=== PATIENT | male | born 1950 | race Caucasian/White ===

== ENCOUNTER 2017-10-20 11:10 | Outpatient (REF) | payer MEDICARE, SELFPAY ==
[2017-10-20 21:27] LABS: ALT 122 U/L (12-78); AST 65 U/L (15-37); Albumin 4.6 g/dL (3.4-5.0); Alkaline Phosphatase 77 U/L (46-116); Anion Gap 8.4 mmol/L (3-11); BUN 17 mg/dL (7-18); Bilirubin, Total 0.5 mg/dL (0.2-1.0); CO2 28.6 mmol/L (21.0-32.0); Calcium 9.7 mg/dL (8.5-10.1); Chloride 101 mmol/L (98-107); Glucose 94 mg/dL (70-100); Potassium 4.6 mmol/L (3.5-5.1); Sodium 138 mmol/L (136-145); Total Protein 8.2 g/dL (6.4-8.2)
[2017-10-20 21:38] LABS: Cholesterol 183 mg/dL (50-200); HDL Cholesterol 63 mg/dL (40-60); LDL CHOLESTEROL 112 mg/dL (<100); Triglyceride 71 mg/dL (30-150)
[2017-10-23 13:58] LABS: GGT 128 U/L (15-85)
== END 2017-10-20 11:30 ==
LOC: NCHCN 11:10
PROVIDERS: PCP Family Medicine; Visit Provider Physician Assistant Medical
DX: E78.00 Pure hypercholesterolemia, unspecified (principal); R79.89 Other specified abnormal findings of blood chemistry
CPT/HCPCS: 80053; 80061; 83721; 82977

== ENCOUNTER 2018-05-29 10:57 | Outpatient (REF) | payer MEDICARE, SELFPAY ==
[2018-05-29 21:44] LABS: ALT 69 U/L (12-78); AST 36 U/L (15-37); Albumin 4.3 g/dL (3.4-5.0); Alkaline Phosphatase 68 U/L (46-116); Bilirubin, Total 0.4 mg/dL (0.2-1.0); GGT 62 U/L (15-85)
[2018-05-29 22:31] LABS: Hemoglobin A1C 5.8 % (4.5-6.2)
== END 2018-05-29 11:17 ==
LOC: NCHCN 10:57
PROVIDERS: PCP Family Medicine; Visit Provider Physician Assistant Medical
DX: E78.00 Pure hypercholesterolemia, unspecified (principal); R79.89 Other specified abnormal findings of blood chemistry
CPT/HCPCS: 80076; 82977; 83036

== ENCOUNTER 2018-08-21 22:47 | Outpatient (REF) | payer MEDICARE, SELFPAY ==
[2018-08-21 21:54] LABS: ALT 59 U/L (12-78); AST 34 U/L (15-37); Albumin 4.7 g/dL (3.4-5.0); Alkaline Phosphatase 70 U/L (46-116); Anion Gap 9.4 mmol/L (3-11); BUN 16 mg/dL (7-18); Bilirubin, Total 0.4 mg/dL (0.2-1.0); CO2 27.6 mmol/L (21.0-32.0); CREATININE 0.75 mg/dL (0.70-1.30); Calcium 10.6 mg/dL (8.5-10.1); Chloride 100 mmol/L (98-107); Glucose 115 mg/dL (70-100); Potassium 5.5 mmol/L (3.5-5.1); Sodium 137 mmol/L (136-145); Total Protein 8.2 g/dL (6.4-8.2)
== END 2018-08-21 23:07 ==
LOC: NCHCN 22:47
PROVIDERS: PCP Family Medicine; Visit Provider Physician Assistant Medical
DX: I10 Essential (primary) hypertension (principal); R79.89 Other specified abnormal findings of blood chemistry
CPT/HCPCS: 80053

== ENCOUNTER 2018-09-24 22:43 | Outpatient (REF) | payer MEDICARE, SELFPAY ==
[2018-09-24 21:57] LABS: Anion Gap 9.4 mmol/L (3-11); BUN 17 mg/dL (7-18); CO2 27.6 mmol/L (21.0-32.0); CREATININE 0.95 mg/dL (0.70-1.30); Calcium 9.9 mg/dL (8.5-10.1); Chloride 100 mmol/L (98-107); Glucose 100 mg/dL (70-100); Potassium 5.1 mmol/L (3.5-5.1); Sodium 137 mmol/L (136-145)
== END 2018-09-24 23:03 ==
LOC: NCHCN 22:43
PROVIDERS: PCP Family Medicine; Visit Provider Physician Assistant Medical
DX: E87.5 Hyperkalemia (principal)
CPT/HCPCS: 80048

== ENCOUNTER 2019-03-25 09:06 | Outpatient (REF) | payer MEDICARE, SELFPAY ==
[2019-03-25 19:17] LABS: Hemoglobin A1C 5.9 % (3.8-5.6)
[2019-03-25 19:20] LABS: ALT 60 U/L (16-63); AST 39 U/L (15-37); Albumin 4.4 g/dL (3.4-5.0); Alkaline Phosphatase 68 U/L (46-116); Anion Gap 9.1 mmol/L (3-11); BUN 15 mg/dL (7-18); Bilirubin, Total 0.6 mg/dL (0.2-1.0); CO2 28.9 mmol/L (21.0-32.0); CREATININE 0.79 mg/dL (0.70-1.30); Calcium 9.7 mg/dL (8.5-10.1); Calculated LDL 122 mg/dL (<100); Chloride 101 mmol/L (98-107); Cholesterol 192 mg/dL (<200); Glucose 107 mg/dL (74-106); HDL Cholesterol 54 mg/dL (40-60); Potassium 4.9 mmol/L (3.5-5.1); Sodium 139 mmol/L (136-145); Total Protein 7.9 g/dL (6.4-8.2); Triglyceride 83 mg/dL (<150)
== END 2019-03-25 09:26 ==
LOC: NCHCN 09:06
PROVIDERS: PCP Family Medicine; Visit Provider Physician Assistant Medical
DX: E87.5 Hyperkalemia (principal); R79.89 Other specified abnormal findings of blood chemistry
CPT/HCPCS: 80053; 80061; 83036

== ENCOUNTER 2021-05-17 18:31 | Outpatient (REF) | payer MEDICARE, SELFPAY ==
[2021-05-17 13:37] LABS: Abs Immature Grans 0.02 10^3/uL (0.0-0.06); Absolute Basophil Count 0.04 10^3/uL (0.0-0.2); Absolute Eosinophil Count 0.05 10^3/uL (0.0-0.7); Absolute Lymphocyte Count 2.46 10^3/uL (1.2-3.4); Absolute Monocyte Count 0.76 10^3/uL (0.1-0.8); Absolute Neutrophil Count 6.24 10^3/uL (1.2-6.7); Basophils % 0.4; Eosinophils % 0.5; HCT 50.6 % (40.0-50.0); HGB 16.6 g/dL (13.5-17.5); Immature Grans % 0.2; Lymphocytes % 25.7; MCH 29.2 pg (27.0-33.0); MCHC 32.8 % (32.0-36.0); MCV 88.9 fL (80-95); MPV 9.9 fL (8.0-11.0); Monocytes % 7.9; Neutrophils % 65.3; Nucleated RBC 0 %; Platelet Count 303 10^3/uL (130-400); RBC 5.69 10^6/uL (4.36-5.78); RDW 12.3 % (11.8-14.1); RDW-SD 40.2 fL; WBC 9.57 10^3/uL (4.4-10.8)
[2021-05-17 13:56] LABS: ALT 122 U/L (16-63); AST 60 U/L (15-37); Albumin 4.6 g/dL (3.4-5.0); Alkaline Phosphatase 65 U/L (46-116); Anion Gap 8.9 mmol/L (3-11); BUN 14 mg/dL (7-18); CO2 28.1 mmol/L (21.0-32.0); CREATININE 0.9 mg/dL (0.70-1.30); Calcium 9.9 mg/dL (8.5-10.1); Calculated LDL 92 mg/dL (<100); Chloride 100 mmol/L (98-107); Cholesterol 165 mg/dL (<200); Glucose 116 mg/dL (74-106); HDL Cholesterol 48 mg/dL (40-60); Potassium 5.2 mmol/L (3.5-5.1); Sodium 137 mmol/L (136-145); Total Protein 8.2 g/dL (6.4-8.2); Triglyceride 126 mg/dL (<150)
[2021-05-17 14:53] LABS: Bilirubin, Total 0.7 mg/dL (0.2-1.0)
[2021-05-19 11:09] LABS: Hepatitis C Ab w Rflx HCV PCR Negative (Negative)
== END 2021-05-17 18:32 | disposition home or self-care (01) ==
LOC: NCHCN 18:31
PROVIDERS: PCP Family Medicine; Visit Provider Physician Assistant Medical
DX: I10 Essential (primary) hypertension (principal); R73.03 Prediabetes; R79.89 Other specified abnormal findings of blood chemistry
CPT/HCPCS: 80053; 80061; 86803; 83036; 85025

== ENCOUNTER 2022-09-30 09:23 | Outpatient (REF) | payer MEDICARE, SELFPAY ==
[2022-09-30 15:58] LABS: HGB 15.8 g/dL (13.5-17.5); MCHC 33.6 % (32.0-36.0); MCV 89 fL (80-95); MPV 10.5 fL (8.0-11.0); Platelet Count 295 10^3/uL (130-400); RBC 5.26 10^6/uL (4.36-5.78); RDW 12.4 % (11.8-14.1); RDW-SD 40.9 fL
[2022-09-30 16:20] LABS: Hemoglobin A1C 5.7 % (<5.7)
[2022-09-30 16:34] LABS: ALT 65 U/L (16-63); AST 39 U/L (15-37); Albumin 4.3 g/dL (3.4-5.0); Alkaline Phosphatase 49 U/L (46-116); BUN 18 mg/dL (7-18); Bilirubin, Total 0.7 mg/dL (0.2-1.0); CREATININE 0.9 mg/dL (0.70-1.30); Calcium 9.7 mg/dL (8.5-10.1); Calculated LDL 83 mg/dL (<100); Chloride 103 mmol/L (98-107); Cholesterol 149 mg/dL (<200); Estimated GFR 91.31 (mL/min/1.73m2); Glucose 126 mg/dL (74-106); HDL Cholesterol 56 mg/dL (40-60); Potassium 4.5 mmol/L (3.5-5.1); Sodium 140 mmol/L (136-145); Total Protein 8.1 g/dL (6.4-8.2); Triglyceride 52 mg/dL (<150)
== END 2022-09-30 09:24 | disposition home or self-care (01) ==
LOC: NCHCN 09:23
PROVIDERS: PCP Family Medicine; Visit Provider Physician Assistant Medical
DX: I10 Essential (primary) hypertension (principal); R73.03 Prediabetes; R79.89 Other specified abnormal findings of blood chemistry
CPT/HCPCS: 80053; 80061; 85027; 83036

== ENCOUNTER 2024-07-09 11:51 | Outpatient (REF) | payer MEDICARE, SELFPAY ==
[2024-07-09 16:14] LABS: Abs Immature Grans 0.02 10^3/uL (0.0-0.06); Absolute Basophil Count 0.04 10^3/uL (0.0-0.2); Absolute Eosinophil Count 0.03 10^3/uL (0.0-0.7); Basophils % 0.4 %; Eosinophils % 0.3 %; HCT 44.5 % (40.0-50.0); Immature Grans % 0.2 %; MCH 29.7 pg (27.0-33.0); MCHC 33.7 % (32.0-36.0); MCV 88 fL (80-95); MPV 10.5 fL (8.0-11.0); Monocytes % 6.3 %; Neutrophils % 69.8 %; Platelet Count 280 10^3/uL (130-400); RBC 5.05 10^6/uL (4.36-5.78); RDW 12.8 % (11.8-14.1); RDW-SD 41.3 fL; WBC 11.11 10^3/uL (4.4-10.8)
[2024-07-09 16:16] LABS: Absolute Lymphocyte Count 2.56 10^3/uL (1.2-3.4); Absolute Neutrophil Count 7.75 10^3/uL (1.2-6.7)
[2024-07-09 16:30] LABS: ALT 41 U/L (16-63); AST 32 U/L (15-37); Albumin 4.5 g/dL (3.4-5.0); Alkaline Phosphatase 57 U/L (46-116); Anion Gap 9.1 mmol/L (3-11); BUN 15 mg/dL (7-18); Bilirubin, Total 0.5 mg/dL (0.2-1.0); CO2 28.9 mmol/L (21.0-32.0); CREATININE 0.8 mg/dL (0.70-1.30); Calcium 9.9 mg/dL (8.5-10.1); Calculated LDL 67 mg/dL (<100); Chloride 98 mmol/L (98-107); Cholesterol 140 mg/dL (<200); Estimated GFR 93.45 (mL/min/1.73m2); Glucose 117 mg/dL (74-106); HDL Cholesterol 57 mg/dL (>or=40); Potassium 4.1 mmol/L (3.5-5.1); Sodium 136 mmol/L (136-145); Total Protein 7.8 g/dL (6.4-8.2); Triglyceride 81 mg/dL (<150)
[2024-07-09 17:30] LABS: Hemoglobin A1C 5.7 % (<5.7)
== END 2024-07-09 11:52 | disposition home or self-care (01) ==
LOC: NCHCN 11:51
PROVIDERS: PCP Family Medicine; Visit Provider Physician Assistant Medical
DX: E78.5 Hyperlipidemia, unspecified (principal); R73.03 Prediabetes; R79.89 Other specified abnormal findings of blood chemistry
CPT/HCPCS: 80053; 80061; 83036; 85025